=== PATIENT | female | born 1955 | race Caucasian/White ===

== ENCOUNTER → 2017-07-29 08:25 | Outpatient (CLI) | payer BC, SELFPAY ==
--- NOTE | 2017-07-29 08:27 | HPBI_ITS ---
MAMMOGRAPHY - BILATERAL SCREENING REASON FOR EXAM: Female, 61 years old. Routine annual screening examination. PERTINENT HISTORY: Aunt with breast cancer. TECHNIQUE: Digital bilateral breast jovan (3D mammographic acquisition) in the CC and MLO projections. 2-D mediolateral oblique (MLO) and craniocaudad (CC) views of both breasts were obtained. CAD: Full Field Digital Mammography with Computer Added Detection was performed. COMPARISON: Comparison is made with prior study dated May 27, 2016. FINDINGS: Breast Composition: There are scattered areas of fibroglandular density. There are no dominant masses or suspicious calcifications. No other significant abnormalities are identified. There has been no significant change since the prior study. HPBI/SCREENING MAMM (CAD), BILAT IMPRESSION: Stable bilateral screening mammogram. Yearly follow-up mammogram recommended. (A) ASSESSMENT CATEGORY: BIRADS Category 1: Negative. A letter regarding these results will be sent to the patient by the facility within 30 days. Approximately 10% of breast cancers are not detected by mammography. A normal mammogram should not delay biopsy of a clinically suspicious abnormality. [id number] Electronically Signed: Yunior Pacheco MD at 10:03 EST Tel [phone], Service support ,
== END ==
PROVIDERS: Family Provider Family Medicine; PCP Family Medicine; Visit Provider Family Medicine
DX: Z12.31 Encounter for screening mammogram for malignant neoplasm of breast (principal)
CPT/HCPCS: 77063; 77067

== ENCOUNTER → 2018-07-10 11:01 | Outpatient (CLI) | payer BC, SELFPAY ==
[2018-07-10 12:24] LABS: Anion Gap 9 (5-15); BUN 13 mg/dL (7-18); BUN/Creat Ratio 23.1 RATIO (10-20); Calcium,Total 8.8 mg/dL (8.5-10.1); Chloride 104 mmol/L (98-107); Cholesterol 234 mg/dL (200); Creatinine, Serum 0.56 mg/dL (0.55-1.02); EST Glomerular Filtration Rate 116 mL/min (>60); Est Glom Filt Rate - Afr Amer 140 mL/min (>60); Glucose 87 mg/dL (74-106); High Density Lipoprotein 81 mg/dL; Potassium 3.9 mmol/L (3.5-5.1); Sodium Level 140 mmol/L (136-145); Triglycerides 58 mg/dL; Very Low Density Lipoprotein 12 mg/dL (5-40)
[2018-07-11 15:26] LABS: Hep B Surface Antibodies Reactive (.); Hep C Antibodies <0.1 s/co ratio (0.0-0.9)
[2018-07-11 15:30] LABS: Hepatitis A IgM Antibody Positive (Negative)
[2018-07-13 11:26] LABS: Vitamin D 1,25-Dihydroxy 56.4 pg/mL (19.9-79.3)
== END ==
PROVIDERS: Family Provider Family Medicine; PCP Family Medicine; Visit Provider Family Medicine
DX: Z00.00 Encounter for general adult medical examination without abnormal findings (principal); E55.9 Vitamin D deficiency, unspecified; R53.83 Other fatigue; Z23 Encounter for immunization
CPT/HCPCS: 36415; 80048; 80061; 82652; 86706; 86709; 86803

== ENCOUNTER → 2018-07-20 12:12 | Outpatient (CLI) | payer BC, SELFPAY ==
--- NOTE | 2018-07-20 12:19 | BI_ITS ---
MAMMOGRAPHY - BILATERAL SCREENING REASON FOR EXAM: Female, 62 years old. Routine annual screening examination. PERTINENT HISTORY: Aunt with breast cancer. TECHNIQUE: Digital bilateral breast jovan (3D mammographic acquisition) in the CC and MLO projections. 2-D mediolateral oblique (MLO) and craniocaudad (CC) views of both breasts were obtained. CAD: Full Field Digital Mammography with Computer Added Detection was performed. COMPARISON: Comparison is made with prior study dated July 29, 2017 and May 27, 2016. FINDINGS: Breast Composition: There are scattered areas of fibroglandular density. There are no dominant masses or suspicious calcifications. No other significant abnormalities are identified. There has been no significant change since the prior study. BI/SCREENING MAMM (CAD), BILAT IMPRESSION: Stable bilateral screening mammogram. Yearly follow-up mammogram recommended. (A) ASSESSMENT CATEGORY: BIRADS Category 1: Negative. A letter regarding these results will be sent to the patient by the facility within 30 days. Approximately 10% of breast cancers are not detected by mammography. A normal mammogram should not delay biopsy of a clinically suspicious abnormality. [id number] Electronically Signed: Yunior Pacheco MD at 14:04 EST , Service support ,
--- NOTE | 2018-07-20 12:21 | BD_ITS ---
STUDY: DUAL ENERGY X-RAY ABSORPTIOMETRY / DXA REASON FOR EXAM: Female, 62 years old. The patient is postmenopausal. No loss of height. TECHNIQUE: Bone Mineral Density (BMD) measurements of lumbar spine and bilateral hips were obtained. COMPARISON: Comparison is made with prior study dated May 27, 2016. FINDINGS: Lumbar Spine (L1-L4): g/cm2 (0.823) / T-score (-3.1) / Z-score (-1.7) Findings are suggestive of osteoporosis with a high fracture risk. Left Femur Total: g/cm2 (0.808) / T-score (-1.6) / Z-score (-0.5) Left Femoral Neck: g/cm2 (0.782) / T-score (-1.8) / Z-score (-0.5) Right Femur Total: g/cm2 (0.852) / T-score (-1.2) / Z-score (-0.2) Right Femoral Neck: g/cm2 (0.782) / T-score (-1.8) / Z-score (-0.5) The T-Scores on the most recent prior examination were: Lumbar Spine (L1-L4): There has been worsening of bone density since the previous examination. Left Femur Total: which represents a worsening of 0.2%. Right Femur Total: which represents an improvement of 3.0%. BD/Dexa Bone Density Study IMPRESSION: The patient is considered osteoporotic as outlined below according to World Gerald Organization (WHO) criteria with a high fracture risk. There has been worsening of bone density since the previous examination. Reference Information: The T-score is the number of standard deviations above or below the standard which is normal for young adults at their peak bone mineral density. The World Health Organization (WHO) interprets the T-scores as follows: Above -1 Normal bone density Between -1 and -2.5 Osteopenia Equal to / or below -2.5 Osteoporosis As a practical clinical guideline, osteopenia may be graded as follows: Mild -1 through -1.5 Moderate -1.6 through -2.0 Severe -2.1 through -2.4 The Z-score is the number of standard deviations above or below age-matched controls. A Z-score of less than -1.5 would be considered abnormal. References: 1. NIH Osteoporosis and Related Bone Diseases http://www.osteo.org 2. International Society for Clinical Densitometry http://www.iscd.org 3. National Osteoporosis Foundation http://www.nof.org Electronically Signed: Yunior Pacheco MD at 11:09 EST , Service support ,
== END ==
PROVIDERS: Family Provider Family Medicine; PCP Family Medicine; Visit Provider Family Medicine
DX: Z12.31 Encounter for screening mammogram for malignant neoplasm of breast (principal); Z78.0 Asymptomatic menopausal state; M81.0 Age-related osteoporosis without current pathological fracture
CPT/HCPCS: 77063; 77067; 77080

== ENCOUNTER → 2019-07-18 08:40 | Outpatient (CLI) | payer BC, SELFPAY ==
[2019-07-18 10:29] LABS: Anion Gap 3 (5-15); BUN 12 mg/dL (7-18); BUN/Creat Ratio 21.1 RATIO (10-20); Calcium,Total 9.2 mg/dL (8.5-10.1); Chloride 106 mmol/L (98-107); Cholesterol 220 mg/dL (200); Creatinine, Serum 0.57 mg/dL (0.55-1.02); EST Glomerular Filtration Rate 114 mL/min (>60); Est Glom Filt Rate - Afr Amer 138 mL/min (>60); Glucose 80 mg/dL (74-106); High Density Lipoprotein 86 mg/dL; Potassium 3.8 mmol/L (3.5-5.1); Sodium Level 138 mmol/L (136-145); Thyroid Stim Hormone (TSH) 1.21 uIU/mL (0.358-3.74); Triglycerides 51 mg/dL; Very Low Density Lipoprotein 10 mg/dL (5-40)
== END ==
PROVIDERS: PCP Family Medicine; Referring Provider Family Medicine; Visit Provider Family Medicine
DX: M81.0 Age-related osteoporosis without current pathological fracture (principal); Z13.220 Encounter for screening for lipoid disorders
CPT/HCPCS: 36415; 80048; 80061; 82306; 84443

== ENCOUNTER → 2019-07-23 10:15 | Outpatient (CLI) | payer BC, SELFPAY ==
--- NOTE | 2019-07-23 10:17 | BI_ITS ---
MAMMOGRAPHY - BILATERAL SCREENING REASON FOR EXAM: Female, 63 years old. Routine annual screening examination. PERTINENT HISTORY: Aunt with breast cancer. TECHNIQUE: Digital bilateral breast analia (3D mammographic acquisition) in the CC and MLO projections. 2-D mediolateral oblique (MLO) and craniocaudad (CC) views of both breasts were obtained. CAD: Full Field Digital Mammography with Computer Added Detection was performed. COMPARISON: Comparison is made with prior examination dated July 20, 2018 and July 29, 2017. FINDINGS: Breast Composition: There are scattered areas of fibroglandular density. There are no dominant masses or suspicious calcifications. No other significant abnormalities are identified. There has been no significant change since the prior study. BI/SCREEN MAMM (CAD) W/ANALIA BILAT IMPRESSION: Stable bilateral screening mammogram. Yearly follow-up mammogram recommended. (A) ASSESSMENT CATEGORY: BIRADS Category 1: Negative. A letter regarding these results will be sent to the patient by the facility within 30 days. Approximately 10% of breast cancers are not detected by mammography. A normal mammogram should not delay biopsy of a clinically suspicious abnormality. [id number] Electronically Signed: Yunior Pacheco, at 11:16 EST , Service support ,
== END ==
PROVIDERS: PCP Family Medicine; Referring Provider Family Medicine; Visit Provider Family Medicine
DX: Z12.31 Encounter for screening mammogram for malignant neoplasm of breast (principal); Z80.3 Family history of malignant neoplasm of breast
CPT/HCPCS: 77063; 77067

== ENCOUNTER → 2020-06-30 10:21 | Outpatient (CLI) | payer BC, SELFPAY | PROVIDERS: PCP Family Medicine; Visit Provider Family Medicine | DX: Z20.822 Contact with and (suspected) exposure to COVID-19 (principal) | CPT/HCPCS: 87635; U0005; U0003 ==

== ENCOUNTER 2020-08-19 08:00 | Outpatient (RCR) | payer BC, SELFPAY ==
[2020-08-19] MEDS: COVID-19 VACC, MRNA(PFIZER)/PF 30 MCG/0.3 ML SYRINGE IM (18:52)
[2020-09-09] MEDS: COVID-19 VACC, MRNA(PFIZER)/PF 30 MCG/0.3 ML SYRINGE IM (18:35)
== END 2020-11-18 23:59 ==
LOC: IMMUN 08:00
PROVIDERS: PCP Family Medicine; Visit Provider Family Medicine
DX: Z23 Encounter for immunization (principal)
CPT/HCPCS: 0001A; 0002A; 91300

== ENCOUNTER → 2020-09-02 10:33 | Outpatient (CLI) | payer BC, SELFPAY ==
[2020-09-02 12:34] LABS: PTHIN 47.1 pg/mL (18.4-80.1)
[2020-09-02 12:40] LABS: Anion Gap 5 (5-15); BUN 11 mg/dL (7-18); Calcium,Total 9.4 mg/dL (8.5-10.1); Chloride 103 mmol/L (98-107); Cholesterol 239 mg/dL (200); Creatinine, Serum 0.65 mg/dL (0.55-1.02); EST Glomerular Filtration Rate 98 mL/min (>60); Est Glom Filt Rate - Afr Amer 118 mL/min (>60); Glucose 90 mg/dL (74-106); High Density Lipoprotein 97 mg/dL; Potassium 3.8 mmol/L (3.5-5.1); Sodium Level 137 mmol/L (136-145); Thyroid Stim Hormone (TSH) 1.13 uIU/mL (0.358-3.74); Triglycerides 44 mg/dL; Very Low Density Lipoprotein 9 mg/dL (5-40)
[2020-09-02 13:08] LABS: Hepatitis C Antibody Non-Reactive (Nonreactive); Vitamin D,25 Hydroxy 32.8 ng/mL
== END ==
PROVIDERS: PCP Family Medicine; Visit Provider Family Medicine
DX: M81.0 Age-related osteoporosis without current pathological fracture (principal); Z11.59 Encounter for screening for other viral diseases; Z13.220 Encounter for screening for lipoid disorders
CPT/HCPCS: 36415; 80048; 80061; 82306; 83970; 84443; 86803

== ENCOUNTER → 2020-09-03 | Outpatient (CLI) | payer BC, SELFPAY ==
[2020-09-08 12:50] LABS: HPV Reflexed? NOT INDICATED
== END | disposition home or self-care (01) ==
LOC: LABSPEC 15:08
PROVIDERS: PCP Family Medicine; Referring Provider Family Medicine; Visit Provider Registered Nurse
DX: Z01.419 Encounter for gynecological examination (general) (routine) without abnormal findings (principal)
CPT/HCPCS: 88175; G0145

== ENCOUNTER → 2020-10-07 13:29 | Outpatient (CLI) | payer BC, SELFPAY ==
--- NOTE | 2020-10-07 13:33 | BI_ITS ---
MAMMOGRAPHY - BILATERAL SCREENING REASON FOR EXAM: Female, 65 years old. Routine annual screening examination. PERTINENT HISTORY: Aunt with breast cancer. TECHNIQUE: Digital bilateral breast analia (3D mammographic acquisition) in the CC and MLO projections. 2-D mediolateral oblique (MLO) and craniocaudad (CC) views of both breasts were obtained. CAD: Full Field Digital Mammography with Computer Added Detection was performed. COMPARISON: Comparison is made with prior study dated 07/23/2019 and 07/20/2018. FINDINGS: Breast Composition: There are scattered areas of fibroglandular density. There are no dominant masses or suspicious calcifications. There is a 2.5 mm x 2.5 mm well-defined nodule in the upper lateral aspect of the right breast. Correlation with ultrasound is recommended. No other significant abnormalities are identified. BI/SCRN MAMM (CAD)W/ANALIA BILAT IMPRESSION: 2.5 mm x 2.5 mm well-defined nodule in the upper lateral aspect of the right breast. Correlation with ultrasound is recommended. ASSESSMENT CATEGORY: BIRADS Category 0: Incomplete. Need additional imaging evaluation. A letter regarding these results will be sent to the patient by the facility within 30 days. Approximately 10% of breast cancers are not detected by mammography. A normal mammogram should not delay biopsy of a clinically suspicious abnormality. [id number] Electronically Signed: Yunior Pacheco MD at 14:43 EDT , Service support ,
--- NOTE | 2020-10-07 13:35 | BD_ITS ---
STUDY: DUAL ENERGY X-RAY ABSORPTIOMETRY / DXA REASON FOR EXAM: Female, 65 years old. 733.00OsteoporosisBONE DENSITY REASON FOR EXAM TECHNIQUE: Bone Mineral Density (BMD) measurements of lumbar spine and bilateral hips were obtained. COMPARISON: Comparison is made with prior study dated 05/27/2016. FINDINGS: Lumbar Spine (L1-L4): g/cm2 (0.805) / T-score (-3.1) / Z-score (-1.5) Findings are suggestive of osteoporosis with a high fracture risk. Increased thoracic kyphosis. Left Femur Total: g/cm2 (0.725) / T-score (-2.2) / Z-score (-1.0) Left Femoral Neck: g/cm2 (0.697) / T-score (-2.5) / Z-score (-1.0) Right Femur Total: g/cm2 (0.746) / T-score (-2.1) / Z-score (-0.9) Right Femoral Neck: g/cm2 (0.733) / T-score (-2.2) / Z-score (-0.7) The T-Scores on the most recent prior examination were: Lumbar Spine (L1-L4): There has been worsening of bone density since the previous examination. Left Femur Total: which represents a worsening of 10.3%. Right Femur Total: which represents a worsening of 12.4%. BD/Dexa Bone Density Study IMPRESSION: The patient is considered osteoporotic as outlined below according to World Gerald Organization (WHO) criteria with a high fracture risk. There has been worsening of bone density since the previous examination. Reference Information: The T-score is the number of standard deviations above or below the standard which is normal for young adults at their peak bone mineral density. The World Health Organization (WHO) interprets the T-scores as follows: Above -1 Normal bone density Between -1 and -2.5 Osteopenia Equal to / or below -2.5 Osteoporosis As a practical clinical guideline, osteopenia may be graded as follows: Mild -1 through -1.5 Moderate -1.6 through -2.0 Severe -2.1 through -2.4 The Z-score is the number of standard deviations above or below age-matched controls. A Z-score of less than -1.5 would be considered abnormal. References: 1. NIH Osteoporosis and Related Bone Diseases www osteo.org 2. International Society for Clinical Densitometry www iscd.org 3. National Osteoporosis Foundation www nof.org Electronically Signed: Yunior Pacheco MD at 15:12 EDT , Service support ,
== END ==
PROVIDERS: PCP Family Medicine; Referring Provider Family Medicine; Visit Provider Family Medicine
DX: Z12.31 Encounter for screening mammogram for malignant neoplasm of breast (principal); M81.0 Age-related osteoporosis without current pathological fracture
CPT/HCPCS: 77063; 77067; 77080

== ENCOUNTER → 2020-10-10 10:55 | Outpatient (CLI) | payer BC, SELFPAY ==
--- NOTE | 2020-10-10 10:58 | US_ITS ---
STUDY: ULTRASOUND BREAST - RIGHT REASON FOR EXAM: Female, 65 years old. Abnormal screening mammogram. TECHNIQUE: Axial and longitudinal images of the RIGHT breast were performed with a high resolution ultrasound transducer. # OF IMAGES: 19 COMPARISON: Comparison is made with prior mammogram dated 10/07/2020. FINDINGS: RIGHT Breast: The mammographic abnormality corresponds to an 8 mm x 3 mm x 2 mm well-defined hypoechoic linear density at the 11 o''clock position breast 1 cm from nipple. This most likely represents a focally dilated duct. A 4 month follow-up examination is recommended. US/Breast Limited Unilateral IMPRESSION: The mammographic abnormality corresponds to an 8 mm x 3 mm x 2 mm well-defined hypoechoic linear density at the 11 o''clock position of the breast at 1 cm from nipple. This has the appearance of a focally dilated duct with low level echoes within it. A four-month follow-up sonogram is recommended. ASSESSMENT CATEGORY: BIRADS Category 3: Probably Benign - Short-Interval Follow-up Suggested. A letter regarding these results will be sent to the patient by the facility within 30 days. Electronically Signed: Yunior Pacheco MD at 14:36 EDT , Service support ,
== END ==
PROVIDERS: PCP Family Medicine; Referring Provider Family Medicine; Visit Provider Family Medicine
DX: N63.11 Unspecified lump in the right breast, upper outer quadrant (principal); R92.8 Other abnormal and inconclusive findings on diagnostic imaging of breast
CPT/HCPCS: 76642

== ENCOUNTER → 2021-01-22 | Outpatient (CLI) | payer BC, SELFPAY ==
[2021-01-22 20:01] LABS: Probe Check PASS; Specimen Processing Control PASS
== END | disposition home or self-care (01) ==
PROVIDERS: PCP Family Medicine; Visit Provider Family Medicine
DX: Z20.822 Contact with and (suspected) exposure to COVID-19 (principal)
CPT/HCPCS: 87635; U0005; U0003

== ENCOUNTER → 2021-02-09 09:23 | Outpatient (CLI) | payer BC, SELFPAY ==
--- NOTE | 2021-02-09 09:30 | US_ITS ---
STUDY: ULTRASOUND BREAST - RIGHT REASON FOR EXAM: Female, 65 years old. Short interval follow-up TECHNIQUE: Axial and longitudinal images of the RIGHT breast were performed with a high resolution ultrasound transducer. # OF IMAGES: 12 COMPARISON: 10/10/2020 FINDINGS: RIGHT Breast: Heterogeneous background echotexture. At 11 o''clock, 1 cm from the nipple, ultrasound demonstrates no change in the 3 x 7 mm oval parallel microlobulated hypoechoic mass and ultrasound-guided vacuum-assisted core biopsy is recommended.: US/Breast Limited Unilateral IMPRESSION: No change in the 3 x 7 mm oval parallel microlobulated hypoechoic mass and ultrasound-guided vacuum-assisted core biopsy is recommended. ASSESSMENT CATEGORY: BIRADS Category 4: Suspicious - Biopsy Should Be Considered. A letter regarding these results will be sent to the patient by the facility within 30 days. Electronically Signed: Bry Crandall MD at 10:55 EDT Tel , Service support ,
== END ==
PROVIDERS: PCP Family Medicine; Referring Provider Family Medicine; Visit Provider Family Medicine
DX: R92.8 Other abnormal and inconclusive findings on diagnostic imaging of breast (principal)
CPT/HCPCS: 76642

== ENCOUNTER 2021-09-29 09:14 | Outpatient (CLI) | payer BC, SELFPAY ==
[2021-09-29 12:23] LABS: Vitamin D,25 Hydroxy 66.7 ng/mL
[2021-09-29 12:31] LABS: PTHIN 36.9 pg/mL (18.4-80.1)
[2021-09-29 12:51] LABS: Anion Gap 7 (5-15); BUN 10 mg/dL (7-18); BUN/Creat Ratio 16.3 RATIO (10-20); Calcium,Total 9.4 mg/dL (8.5-10.1); Chloride 104 mmol/L (98-107); Cholesterol 267 mg/dL (200); Creatinine, Serum 0.61 mg/dL (0.55-1.02); EST Glomerular Filtration Rate 104 mL/min (>60); Est Glom Filt Rate - Afr Amer 125 mL/min (>60); Glucose 95 mg/dL (74-106); High Density Lipoprotein 103 mg/dL; Potassium 3.7 mmol/L (3.5-5.1); Sodium Level 138 mmol/L (136-145); Triglycerides 47 mg/dL; Very Low Density Lipoprotein 9 mg/dL (5-40)
== END 2021-09-29 23:59 | disposition home or self-care (01) ==
LOC: OPBI 09:15
PROVIDERS: PCP Family Medicine; Visit Provider Family Medicine
DX: M81.0 Age-related osteoporosis without current pathological fracture (principal); Z13.220 Encounter for screening for lipoid disorders
CPT/HCPCS: 36415; 80048; 80061; 82306; 82330; 83970; 84443

== ENCOUNTER → 2022-12-29 | Outpatient (CLI) | payer BC, SELFPAY ==
[2022-12-29 10:47] LABS: PTHIN 64.5 pg/mL (18.4-80.1)
[2022-12-29 10:49] LABS: Vitamin D,25 Hydroxy 58.8 ng/mL
[2022-12-29 11:05] LABS: Anion Gap 6 (5-15); BUN 7 mg/dL (7-18); BUN/Creat Ratio 12.4 RATIO (10-20); Calcium,Total 9.2 mg/dL (8.5-10.1); Chloride 104 mmol/L (98-107); Cholesterol 226 mg/dL (200); Creatinine, Serum 0.56 mg/dL (0.55-1.02); EST Glomerular Filtration Rate 114 mL/min (>60); Est Glom Filt Rate - Afr Amer 138 mL/min (>60); Glucose 92 mg/dL (74-106); High Density Lipoprotein 84 mg/dL; Magnesium 2.3 mg/dL (1.6-2.6); Phosphorus 4.1 mg/dL (2.5-4.9); Potassium 4.2 mmol/L (3.5-5.1); Sodium Level 138 mmol/L (136-145); Thyroid Stim Hormone (TSH) 1.63 uIU/mL (0.358-3.74); Triglycerides 58 mg/dL; Very Low Density Lipoprotein 12 mg/dL (5-40)
[2022-12-29 13:53] LABS: Ionized Calcium Order 4.86
[2023-01-01 10:39] LABS: Ionized Calcium 4.86 mg/dL (4.36-5.20)
== END | disposition home or self-care (01) ==
PROVIDERS: PCP Family Medicine; Visit Provider Family Medicine
DX: M81.0 Age-related osteoporosis without current pathological fracture (principal); Z13.220 Encounter for screening for lipoid disorders
CPT/HCPCS: 36415; 80048; 80061; 82306; 82330; 83735; 83970; 84100; 84443

== ENCOUNTER 2023-01-11 14:29 | Observation (INO) | payer BC, SELFPAY ==
[2023-01-11] VITALS (8 sets, daily range): BP systolic 112–148; BP diastolic 70–88; PULSE 62–83; RESP 14–18; TEMP 36.1–36.8; O2SAT 95–100; BMI 23.2; BMI 22.8
--- NOTE | 2023-01-11 14:54 | EKG12_ITS ---
Test Reason : ABD PAIN Blood Pressure : / mmHG Vent. Rate : 065 BPM Atrial Rate : 065 BPM P-R Int : 134 ms QRS Dur : 092 ms QT Int : 418 ms P-R-T Axes : 032 060 027 degrees QTc Int : 434 ms Normal sinus rhythm Normal ECG Confirmed by ISABELA RAMIREZ, KANDICE ([id number]), online editor MIK BAUTISTA ([id number]) on 01/13/2023 8:53:56 AM Referred By: Confirmed By:ELIJAH MAR MD
--- NOTE | 2023-01-11 14:56 | EX.ED.DYSGE1 ---
HPI History of Present Illness Chief Complaint: Abd Pain Informant: patient Onset/Context/Timing Onset: Days (3 days) Context: Gradual Onset Current Severity: Mild Maximum Severity: Moderate Narrative Narrative: Patient presents secondary to appendicitis. She had an outpatient CT today that shows noncomplicated retrocecal appendicitis. Patient states she developed abdominal pain on Tuesday. It was a cramping sensation across her lower abdomen and several hours later moved into her right lower quadrant. She had chills and no appetite. She was seen by her PCP this morning who sent her in for a CT scan. Patient states she last ate at 8 AM this morning. Since then she is only had the p.o. contrast for her CT scan. [facility] Medical History (Updated 01/11/23 @ 15:[address] Jody Vallejo MD) Osteoporosis Allergy/AdvReac Type Severity Reaction Status Date / Time Penicillins Allergy Hives Verified 01/11/23 14:31 Surgical History (Updated 01/11/23 @ 14:[address] Jody Vallejo MD) Hx of cholecystectomy ROS ROS ED Constitutional Constitutional ED: Reports chills; Denies fever(s) Eyes Eyes: Denies change in vision ENT ENT ED: Denies rhinorrhea or sore throat Cardiovascular Cardiovascular: Denies chest pain or palpitations Respiratory/Chest Respiratory/Chest: Denies cough or dyspnea Gastrointestinal Gastrointestinal: Reports abdominal pain, diarrhea and other Details: Decreased appetite ; Denies nausea or vomiting Genitourinary Genitourinary ED: Denies difficulty urinating or dysuria Musculoskeletal Musculoskeletal: Denies back pain or extremity pain Integumentary Denies Abrasions or rash Neurologic Neurologic: Denies headache(s) or weakness Psychiatric Psychiatric: Denies anxiety or depression Allergic/Immunologic Allergic/Immunologic ED: Denies lip swelling or urticaria EXAM Physical Exam Const Vital Signs: 01/11/23 14:29 Temperature 97.9 F Temperature Source Temporal Pulse Rate 81 Respiratory Rate 18 Blood Pressure 127/80 H Blood Pressure Mean 95 Pulse Ox 100 Oxygen Delivery Method Room Air Positive well nourished and well developed General Appearance ED: well developed HEENT Reports normocephalic and head/scalp atraumatic Eyes PERRL and EOMs intact bilaterally Neck supple Chest Wall inspection of chest normal and palpation of chest normal Resp normal respiratory effort and clear to auscultation bilaterally Cardio regular rate and regular rhythm GI GI Narrative: Abdomen soft with minimal tenderness in the right lower quadrant. No guarding or rebound. Hypoactive but present bowel sounds are noted. Palpation: soft Extremity normal to inspection Neuro oriented x3 and no sensory deficits noted Sensorium / Orientation: alert Motor Exam: strength 5/5 throughout Psych mental status grossly normal Skin no rashes or lesions noted MDM MDM MDM Narrative Medical decision making narrative: Patient's CT scan was reviewed. Patient has uncomplicated appendicitis. Her last lab work was obtained on the . At this time repeat labs will be obtained along with coags. EKG will be obtained for preoperative clearance. Patient does have an allergy to penicillin and is given Cipro and Flagyl. Surgeon is contacted. Discharge Plan Triage Chief Complaint: Abd Pain ED Provider: Jody Vallejo Dx/Rx/DC Orders Clinical Impression: Acute appendicitis Primary Care Provider: Genaro Ramirez Referrals: Genaro Ramirez MD [Primary Care Provider] - Disposition Disposition: Acute Care Hospital [facility]
--- NOTE | 2023-01-11 14:58 | NURSING ---
NO OLD EKGS
[2023-01-11 15:19] LABS: Absolute Lymphocyte Count 1.83 X10^3/uL (0.83-4.51); Absolute Neutrophil Count 3.2 X10^3/uL (2.0-7.7); Basophil# 0.02 X10^3/uL; Basophil% 0.4 % (0-1); Eosinophil# 0.13 X10^3/uL; Eosinophils% 2.3 % (0-5); Hematocrit 39.8 % (37-47); Hemoglobin 13.5 g/dL (12.0-15.0); Lymphocyte # 1.83 X10^3/ul (0.83-4.51); Lymphocyte % 32.6 % (19-41); Mean Corp Hgb Conc 33.9 g/dL (32-36); Mean Corpuscular Hgb 32.2 pg (27.0-32.0); Mean Platelet Vol. 9.4 fl (6.2-12.0); Monocyte# 0.44 X10^3/uL; Monocyte% 7.8 % (0-10); NRBC Flagged by Analyzer 0 % (0-5); Neutrophil # 3.18 X10^3/uL (2.7-7.7); Neutrophil % 56.5 % (47-70); Platelet Count 258 K/mm3 (150-450); RBC Distribution Width CV 12.5 % (11.6-14.6); RBC Distribution Width SD 43.8 fl (35.1-43.9); Red Blood Count 4.19 M/mm3 (4.2-5.4); White Blood Count 5.6 K/mm3 (4.4-11.0)
[2023-01-11 15:26] LABS: Prothrombin Time (Protime)PT. 12.7 SECONDS (11.7-14.9)
[2023-01-11] MEDS: 0.9% Normal Saline 1,000 ML 150 ML IV (15:26)
[2023-01-11 15:27] LABS: Partial Thromboplast Time 29.2 Seconds (24.1-36.2)
[2023-01-11] MEDS: Ciprofloxacin 400 MG/200 ML BAG 200 MG IV (15:28)
--- NOTE | 2023-01-11 16:15 | NURSING ---
SURGERY THEN [address] [facility]
[2023-01-11 16:23] LABS: Anion Gap 3 (5-15); BUN 6 mg/dL (7-18); BUN/Creat Ratio 11.7 RATIO (10-20); Calcium,Total 8.9 mg/dL (8.5-10.1); Chloride 104 mmol/L (98-107); Creatinine, Serum 0.52 mg/dL (0.55-1.02); EST Glomerular Filtration Rate 126 mL/min (>60); Est Glom Filt Rate - Afr Amer 153 mL/min (>60); Estimated Creatinine Clearance 41.19 ml/min; Glucose 91 mg/dL (74-106); Sodium Level 136 mmol/L (136-145)
--- NOTE | 2023-01-11 16:46 | HP.PCM_ITS ---
HPI - General General Date of Admission: 01/11/23 Chief Complaint: Outpatient CT consistent with acute appendicitis HPI Narrative GELA RUSSO, is a 67 F who presents to [facility] on direction from her primary care provider after outpatient CT is read is consistent with acute appendicitis. This imaging was ordered after patient contacted her [facility] provider office on 01/10/2023 after particularly intense period of right lower quadrant abdominal discomfort that began in the preceding day. She notes that the pain began around her bellybutton and migrated to the right lower quadrant. That day it was associated with some nausea but no vomiting. She also notes the presence of chills but did not take her temperature. She reports that the following day, yesterday, she had some improvement of her symptoms but remained without an appetite. Today she was surprised at how her pain was significantly better and she was able to tolerate breakfast without any nausea. In fact she reports an appetite currently. Mrs. Russo denies any prior experience of this abdominal discomfort. She states the reason she sought further evaluation is because she was due to travel to [place] this weekend for her nephew's wedding and wanted to be sure this was more fully evaluated before she began those travels. Mrs. Russo has a history of cholecystectomy performed via laparoscopic approach in 2012 in [facility] where she lived at the time. She notes that this was an emergent procedure. She then moved to [place] where she had a colono scopy approximately [address] Sorto[address] She was given a 7-year follow-up rather than a 10-year follow-up on the account of some insignificant polyps. She otherwise denies any significant family history for GI diagnoses. [facility] Medical History (Updated 01/11/23 @ 15:[address] Jody Vallejo MD) Osteoporosis Home Medications Calcium 1,200 iu PO 1XD 01/11/23 [History Last Taken 01/10/23] cholecalciferol (vitamin D3) 125 mcg (5,000 unit) tablet (Vitamin D3) 5,000 unit PO DAILY 01/11/23 [History Last Taken Unknown] Allergy/AdvReac Type Severity Reaction Status Date / Time Penicillins Allergy Hives Verified 01/11/23 14:31 Surgical History (Updated 01/11/23 @ 14:[address] Jody Vallejo MD) Hx of cholecystectomy Social History Smoking Status: Never smoker Vital Signs Vital Signs Vital Signs: 01/11/23 14:29 Temperature 97.9 F Temperature Source Temporal Pulse Rate 81 Respiratory Rate 18 Blood Pressure 127/80 H Blood Pressure Mean 95 Pulse Ox 100 Oxygen Delivery Method Room Air Weight Weight: 123 lb Body Mass Index (BMI) 23.2 Physical Exam Const alert, oriented x3, no apparent distress and well nourished General Appearance: cooperative Resp normal respiratory effort GI GI Narrative: Soft, scars present from prior laparoscopy now well-healed, no evidence of herniation with inspection or palpation, nondistended, tenderness present over McBurney's point. Negative obturator and psoas signs. Results Lab / Micro Data 01/11/23 15:05 01/11/23 15:05 Labs: Laboratory Results - last 24 hr 01/11/23 15:05: WBC 5.6, RBC 4.19 L, Hgb 13.5, Hct 39.8, MCV 95.0, MCH 32.2 H, MCHC 33.9, RDW Std Deviation 43.8, RDW Coeff of [place] 12.5, Plt Count 258, MPV 9.4, Immature Gran % (Auto) 0.400, Neut % (Auto) 56.5, Lymph % (Auto) 32.6, [place] % (Auto) 7.8, Eos % (Auto) 2.3, Baso % (Auto) 0.4, Absolute Neuts (auto) 3.2, Absolute Lymphs (auto) 1.83, Nucleated RBC % 0, PT 12.7, INR 1.0, APTT 29.2, Sodium 136, Potassium 5.0, Chloride 104, Carbon Dioxide 29.0, Anion Gap 3 L, BUN 6 L, Creatinine 0.52 L, Estim Creat Clear Calc 41.19, Est GFR (MDRD) Af Amer 153, Est GFR (MDRD) Non-Af 126, BUN/Creatinine Ratio 11.7, Glucose 91, Calcium 8.9 Assessment & Plan Assessment/Plan (1) Acute appendicitis: PLAN: This is a 67-year-old female who presents with a bit of a atypical presentation for acute appendicitis given that the most significant portion of her presentation actually occurred over 48 hours ago with severe abdominal disco mfort and associated nausea/anorexia. Still, outpatient CT imaging is consistent with a retrocecal inflamed appendix as I have independently reviewed and patient has tenderness over McBurney's point. It is with these things in place that I have recommended proceeding for laparoscopic appendectomy this evening. I have discussed the recent results of the CODA trial and the use of antibiotics alone for appendicitis, but outlined that it remains a standard of care in this country to perform appendectomy. Mrs. Russo and her expressed understanding of this information and appreciation for the explanation. Mrs. Russo also confirms that she is ready to proceed with surgery. The procedure and its attendant risks were briefly discussed as well as the expected postoperative recovery. I initially tried to prepare her for possible outpatient discharge, however, and checking with the emergency schedule for the operating room it appears that this operation will be proceeding later so we will plan for an observational admission to try to enhance patient's comfort. Antibiotics have already been provided by emergency medicine and were sensitive to patient's allergy to penicillins. Charges/Coding Visit Charges Inpatient E&M: 79392 Init Hosp L2
[2023-01-11] MEDS: 0.9% Normal Saline 1,000 ML 125 ML IV ×2 (17:36→21:45)
[2023-01-11] MEDS: metroNIDAZOLE 500 MG/100 ML BAG 100 MG IV (18:20)
--- NOTE | 2023-01-11 18:20 | APP_PTH ---
PATIENT: GELA RUSSO LOC: MS3 U#:[id number] AGE/SX: 67/F [place] [facility] [place]: Dr. Antoni Munguia MD : 1955 BED: 1 DIS: 01/12/2023 SPEC #: [id number] RECD: 01/12/23 08:09 STATUS: MOOK SUNG #: [id number] SUSIE: 01/11/23 18:[address]: Antoni Munguia DEPT: SURGICAL PATHOLOGY RECD BY: Nadja Do ENTERED: 01/12/23 09:49 SP TYPE: APPENDIX OTHR DR: Dr. Crescencio Ramirez MD Tissues: Appendix, NOS Procedures: Surgery Specimen Level III HEADER OPERATION: Laparoscopic appendectomy PRE-OP DIAGNOSIS: Acute appendicitis TISSUE SUBMITTED: Appendix MICROSCOPIC DIAGNOSIS Appendix, appendectomy: Acute appendicitis and periappendicitis. ALMA:hannah 01/13/2023 MICROSCOPIC DESCRIPTION Slides are reviewed. GROSS DESCRIPTION Received in fixative is one container labeled with the patient's name and designated appendix. The specimen consists of an appendix measuring 4.3 cm in length and up to 0.8 cm in diameter. The attached periappendiceal adipose tissue measures up to 1.5 cm in width. The serosa is congested. No obvious perforation is identified. The mucosa is congested. No fecalith is identified. Physical Therapy Supervisor sections are submitted in two cassettes. The appendix is submitted in entirety. Cassette 1 contains the tip and proximal portion. / ALMA:hannah 01/12/2023 TC:2 CPT: 69498
[2023-01-11] MEDS: Bupivacaine Mpf 0.5% 30 ML VIAL (20:17)
--- NOTE | 2023-01-11 20:27 | OP.PCM_ITS ---
Report of Operation Date of Procedure: 01/11/23 Pre-Operative Diagnosis: Acute appendicitis Post-Operative Diagnosis: Acute, uncomplicated appendicitis Surgery/Procedure Performed:: Laparoscopic appendectomy Description of Surgical Findings:: ? Acutely inflamed appendix with injected serosa?no evidence of perforation Surgeon: Antoni Munguia software test analyst: None Type of Anesthesia: General/Supplemental Anesthesiologist: Miguelina Duncan Specimen's removed: Appendix Drains: None Estimated Blood Loss (mL): 5 Description of Procedure: After appropriate identification in the PACU holding area, the patient was brought to the operating room and placed supine on the operating room table. Antibiotics had been preoperatively administered by emergency medicine. Patient was then induced with general endotracheal anesthetic. The abdomen was prepped and draped in usual sterile fashion. Formal timeout was conducted to confirm both the patient and the procedure. A supraumbilical incision was made and carried down to the level of the fascia which was sharply opened. After opening the peritoneum in like fashion a finger sweep was made to confirm position, and a balloon trocar was placed and pneumoperitoneum was established to 15 mmHg. Patient was positioned in Trendelenburg with the left side down. Under laparoscopic visualization, 2 additional 5 mm trocars were placed in the left lower quadrant and suprapubic positions. The peritoneum was inspected and there were no signs of inadvertent injury from this [place] entry. The appendix was visualized with mild acute inflammation. Using blunt laparoscopic dissection, a window was made in the mesoappendix adjacent to the appendiceal base. Then the base of the appendix was sealed and amputated with the use of an Endo ELIJAH stapler. The mesoappendix was divided with application of a laparoscopic harmonic. The appendix was placed in an Endo Catch bag. The staple line was inspected for hemostasis. After hemostasis was confirmed, the appendix was removed from the umbilical port site. Pneumoperitoneum was then evacuated and the supraumbilical port site fascia was closed with #1 Vicryl in a hqaxmx-go-dhaij fashion. The port sites were infiltrated with 20 mL local anesthetic. The skin of each port site was closed with 4-0 Monocryl in a subcuticular fashion. Steri-Strips and OpSite dressings were applied. Patient tolerated procedure well without any apparent complications. They were awoken from general anesthetic without issue and transferred to post anesthesia care unit for ongoing recovery. Grafts/Implants Used: None Complications None Admit VTE Documentation VTE Mechan Device Prophylaxis: SCD's Procedures Digestive 40xxx-49xxx: 60279 Laparoscopy appendectomy
[2023-01-11] MEDS: Acetaminophen 500 MG Tablet PO (23:38)
[2023-01-12 01:26] VITALS: BP 108/65; PULSE 71; RESP 16; TEMP 36.7; O2SAT 97
[2023-01-12 05:26] VITALS: BP 105/64; PULSE 68; RESP 16; TEMP 36.6; O2SAT 96
--- NOTE | 2023-01-12 09:08 | PCM.PN.SRG ---
Subjective Subjective Patient evaluated resting comfortably in bed. She denies any nausea, vomiting, fever. She feels hungry. She notes very minimal amount of incisional pain. Objective Data Objective Data Vital Signs: Vital Signs Temp Pulse Resp BP Pulse Ox O2 Del Method 97.8 F 68 16 105/64 96 Room Air 01/12/23 05:26 01/12/23 05:26 01/12/23 05:26 01/12/23 05:26 01/12/23 05:26 01/12/23 05:26 Oxygen Delivery Method Room Air Weight: 120 lb 9.486 oz Body Mass Index (BMI) 22.8 Intake & Output: Intake and Output for Last 24 Hours 01/10/23 01/11/23 01/12/23 23:59 23:59 23:59 Intake Total 716.67 / 716.67 2400 / 2400 Output Total 1700 / 1700 Balance 716.67 / 716.67 700 / 700 Lab / Micro Data 01/11/23 15:05 01/11/23 15:05 Labs: Laboratory Results - last 24 hr 01/11/23 15:05: WBC 5.6, RBC 4.19 L, Hgb 13.5, Hct 39.8, MCV 95.0, MCH 32.2 H, MCHC 33.9, RDW Std Deviation 43.8, RDW Coeff of Sharona 12.5, Plt Count 258, MPV 9.4, Immature Gran % (Auto) 0.400, Neut % (Auto) 56.5, Lymph % (Auto) 32.6, [place] % (Auto) 7.8, Eos % (Auto) 2.3, Baso % (Auto) 0.4, Absolute Neuts (auto) 3.2, Absolute Lymphs (auto) 1.83, Nucleated RBC % 0, PT 12.7, INR 1.0, APTT 29.2, Sodium 136, Potassium 5.0, Chloride 104, Carbon Dioxide 29.0, Anion Gap 3 L, BUN 6 L, Creatinine 0.52 L, Estim Creat Clear Calc 41.19, Est GFR (MDRD) Af Amer 153, Est GFR (MDRD) Non-Af 126, BUN/Creatinine Ratio 11.7, Glucose 91, Calcium 8.9 Physical Exam Const alert, oriented x3 and no apparent distress GI normal to inspection, nondistended, normoactive bowel sounds GI Narrative: Abdomen- soft, nontender. Incisions c/d/i. No erythema or infection noted Assessment & Plan Assessment/Plan (1) Acute appendicitis: QUALIFIERS: Acute appendicitis type: with localized peritonitis Appendicitis gangrene presence: without gangrene Appendicitis perforation presence: without perforation Appendicitis abscess presence: without abscess Qualified Code(s): K35.30 - Acute appendicitis with localized peritonitis, without perforation or gangrene PLAN: Patient is recovering and progressing well Increase diet to regular Ready for discharge Charges/Coding Visit Charges Inpatient E&M: 79233 Init Hosp L1 (Post-op; no charge)
--- NOTE | 2023-01-12 09:19 | DCINST_ITS ---
Discharge Instructions Diet Discharge Diet: Light diet - advance as tolerated Activity Discharge Activity: May Not Drive (3-5 days or while taking narcotic pain medication) and May Shower (today) Lifting Restrictions: 15 pounds for 2 weeks Dressing / Incision Call your doctor if your incision/area has: Continuous Slow Oozing, Sudden Increased Bleeding, Increased Pain/ Swelling, Increased Redness, Foul Smelling Discharge and Swelling at the incision site Call your doctor if you observe: Fever of 101 or Higher Suture Line Care: Avoid Pulling/Pushing and Avoid Pinching/Bending Remove Dressing in: 1 day Cleanse incision/area with: Soap & Water Follow Up Care Please Follow Up With: Antoni Munguia MD When: Please contact our office to follow-up in 10 days at [phone] Test Results: Test results from this visit will be discussed in further detail at your follow- up appointment, if applicable. Discharge Plan Admission Admit Date/Time: 01/11/23 16:55 Primary Reason for Your Visit: Acute appendicitis Attending Provider: Antoni Munguia Primary Care Provider: Genaro Ramirez Instructions Additional Instructions / Restrictions: Recommend alternating Tylenol and ibuprofen as needed for pain. For example: Tylenol at 0800, Ibuprofen at 1200, Tylenol at 1500 (3pm), Ibuprofen at 1800 (6pm), etc. You also have a narcotic prescription at your preferred pharmacy if needed May shower starting today Remove op-site tomorrow No lifting greater than 15 pounds for 3 weeks Discharge Orders/Prescriptions Prescriptions: New oxycodone 5 mg Tablet 5 mg PO Q6H PRN PRN (Reason: Pain Score 6-10) 2 Days Qty: 6 0RF Continued Calcium 1,200 iu PO 1XD cholecalciferol (vitamin D3) [Vitamin D3] 125 mcg (5,000 unit) tablet 5,000 unit PO DAILY Referrals / Follow Up: Genaro Ramirez MD [Primary Care Provider] - Antoni Munguia MD [Med Staff - Active Staff] - (Please contact our office to schedule a follow-up appointment for 10 days) Disposition Disposition (needs filled in before D/C Order can be placed): Home, Self Care
--- NOTE | 2023-01-12 11:27 | PHA.DC.MC.R ---
Pharmacy [facility] Service has performed discharge medication reconciliation and counseling for this patient. 1. OXYCODONE 5MG PO Q6H PRN SEVERE PAIN The patient's discharge medication list was reviewed for discrepancies and discrepancies were resolved. The patient was counseled on the following discharge medications and changes in medications for homegoing were reviewed. The Reason for Use, instructions for use, and potential side effects were reviewed for all new medications. The patient's questions regarding all of their medications were answered. The patient was able to verbally demonstrate an understanding of their discharge medications. Patient counseled by pharmacy retail support specialistIris. Medications at Discharge Home Medications Calcium 1,200 iu PO 1XD 01/11/23 cholecalciferol (vitamin D3) 125 mcg (5,000 unit) tablet (Vitamin D3) 5,000 unit PO DAILY 01/11/23 oxycodone 5 mg tablet 5 mg PO Q6H PRN PRN Pain Score 6-10 2 days #6 tabs 01/12/23
== END 2023-01-12 11:20 | disposition home or self-care (01) ==
LOC: ED 15:08 → MS3 16:16
PROVIDERS: Admitting Provider Surgery; Emergency Provider Emergency Medicine; PCP Family Medicine; Visit Provider Surgery
PROC: 0DTJ4ZZ Resection of Appendix, Percutaneous Endoscopic Approach (ICD-10-PCS; CPT 44970; principal; 2023-01-11 18:00)
DX: K35.30 Acute appendicitis with localized peritonitis, without perforation or gangrene (principal)
CPT/HCPCS: 44970; 00840; 80048; 85025; 85610; 85730; 88304; 93005; 96361; 96365; 96366; 99221; 99282; J7030; G0378; J0744; J2405

== ENCOUNTER → 2023-01-11 | Outpatient (CLI) | payer BC, SELFPAY ==
--- NOTE | 2023-01-11 10:37 | CT_ITS ---
STUDY: CT ABDOMEN AND PELVIS WITH CONTRAST REASON FOR EXAM: Female, 67 years old. RLQ pain x 2 days, nausea, prior cholecystectomy. RADIATION DOSAGE (If Supplied By Facility): CTDIvol = ( 16.31 ) mGy, DLP = ( 434.35 ) mGycm TECHNIQUE: Transaxial images were obtained from the dome of the diaphragm to the symphysis pubis with oral contrast. Oral and IV Gastrografin and 100mL Isovue-300 was administered. Sagittal and coronal images were reconstructed. Individualized dose optimization techniques were used for this CT. COMPARISON: None. FINDINGS: The visualized lung bases are unremarkable. The visualized portions of the heart are within normal limits. There is a 8mm cyst in the inferior medial aspect of the right lobe of the liver. There are surgical clips in the gallbladder fossa consistent with a prior cholecystectomy. Normal spleen. Normal pancreas. Normal bilateral adrenal glands. Normal right kidney. Normal left kidney. Normal visualized stomach. Normal small intestine. Moderate amount of fecal material is seen in the colon. There is a tubular, thick-walled appendix (>7mm), consistent with acute appendicitis. This is retrocecal in location. Normal abdominal aorta. Normal inferior vena cava. Normal retroperitoneum. Normal urinary bladder. Calcified fibroid uterus. Normal abdominal wall. Loss of height of the superior endplate of the L5 vertebrae. CT/Abdomen/Pelvis WITH Contrast IMPRESSION: Acute noncomplicated retrocecal appendicitis. Electronically Signed: Yunior Pacheco MD at 13:56 EDT ,
== END | disposition home or self-care (01) ==
LOC: CT 10:32
PROVIDERS: PCP Family Medicine; Referring Provider Family Medicine; Visit Provider Family Medicine
DX: R10.31 Right lower quadrant pain (principal)
CPT/HCPCS: 74177; Q9967; A4216

== ENCOUNTER → 2023-03-03 | Outpatient (CLI) | payer BC, SELFPAY ==
--- NOTE | 2023-03-03 13:16 | BI_ITS ---
MAMMOGRAPHY - BILATERAL SCREENING REASON FOR EXAM: Female, 67 years old. Routine annual screening examination. PERTINENT HISTORY: Non-contributory. TECHNIQUE: Digital bilateral breast analia (3D mammographic acquisition) in the CC and MLO projections. 2-D mediolateral oblique (MLO) and craniocaudad (CC) views of both breasts were obtained. CAD: Full Field Digital Mammography with Computer Added Detection was performed. COMPARISON: Comparison is made with prior outside examination of February 26, 2022 and October 07, 2020. FINDINGS: Breast Composition: There are scattered areas of fibroglandular density. There are no dominant masses or suspicious calcifications. No other significant abnormalities are identified. There has been no significant change since the prior study. BI/SCRN MAMM (CAD)W/ANALIA BILAT IMPRESSION: Stable bilateral screening mammogram. Yearly follow-up mammogram recommended. (A) ASSESSMENT CATEGORY: BIRADS Category 1: Negative. A letter regarding these results will be sent to the patient by the facility within 30 days. Approximately 10% of breast cancers are not detected by mammography. A normal mammogram should not delay biopsy of a clinically suspicious abnormality. [id number] Electronically Signed: Yunior Pacheco MD at 14:46 EDT ,
--- NOTE | 2023-03-03 13:22 | BD_ITS ---
STUDY: DUAL ENERGY X-RAY ABSORPTIOMETRY / DXA REASON FOR EXAM: Female, 67 years old. [id number] TECHNIQUE: Bone Mineral Density (BMD) measurements of lumbar spine and bilateral hips were obtained. COMPARISON: Comparison is made with prior study dated October 07, 2020. FINDINGS: Lumbar Spine (L1-L4): g/cm2 (0.648) / T-score (-4.1) / Z-score (-2.1) Findings are suggestive of osteoporosis with a high fracture risk. Left Femur Total: g/cm2 (0.688) / T-score (-2.1) / Z-score (-0.7) Left Femoral Neck: g/cm2 (0.580) / T-score (-2.4) / Z-score (-0.8) Right Femur Total: g/cm2 (0.721) / T-score (-1.8) / Z-score (-0.4) Right Femoral Neck: g/cm2 (0.652) / T-score (-1.8) / Z-score (-0.1) The T-Scores on the most recent prior examination were: Lumbar Spine (L1-L4): There has been worsening of bone density since the previous examination. Left Femur Total: which represents an improvement of 3.1%. Right Femur Total: which represents an improvement of 4.8%. BD/Dexa Bone Density Study IMPRESSION: The patient is considered osteoporotic as outlined below according to World Gerald Organization (WHO) criteria with a high fracture risk. There has been improvement of bone density since the previous examination. Reference Information: The T-score is the number of standard deviations above or below the standard which is normal for young adults at their peak bone mineral density. The World Health Organization (WHO) interprets the T-scores as follows: Above -1 Normal bone density Between -1 and -2.5 Osteopenia Equal to / or below -2.5 Osteoporosis As a practical clinical guideline, osteopenia may be graded as follows: Mild -1 through -1.5 Moderate -1.6 through -2.0 Severe -2.1 through -2.4 The Z-score is the number of standard deviations above or below age-matched controls. A Z-score of less than -1.5 would be considered abnormal. References: 1. NIH Osteoporosis and Related Bone Diseases www osteo.org 2. International Society for Clinical Densitometry www iscd.org 3. National Osteoporosis Foundation www nof.org Electronically Signed: Yunior Pacheco MD at 14:44 EDT ,
== END | disposition home or self-care (01) ==
PROVIDERS: PCP Family Medicine; Referring Provider Family Medicine; Visit Provider Family Medicine
DX: Z12.31 Encounter for screening mammogram for malignant neoplasm of breast (principal); M81.0 Age-related osteoporosis without current pathological fracture
CPT/HCPCS: 77063; 77067; 77080

== ENCOUNTER → 2024-02-27 | Outpatient (CLI) | payer BC, SELFPAY ==
[2024-02-27 10:54] LABS: Ionized Calcium Order ORDER TUBE
[2024-02-27 13:03] LABS: PTHIN 68.9 pg/mL (18.4-80.1)
[2024-02-27 13:04] LABS: Vitamin D,25 Hydroxy 54.1 ng/mL
[2024-02-27 13:49] LABS: AST(SGOT) 12 U/L (15-37); Alanine Aminotransfer ALT/SGPT 17 U/L (13-56); Albumin, Serum 3.8 g/dL (3.2-5.0); Alkaline Phosphatase 59 U/L (45-117); Anion Gap 8 (5-15); BUN 9 mg/dL (7-18); BUN/Creat Ratio 16.9 RATIO (10-20); Bilirubin, Direct 0.16 mg/dL (0.00-0.30); Calcium,Total 9.1 mg/dL (8.5-10.1); Chloride 102 mmol/L (98-107); Cholesterol 251 mg/dL (200); Creatinine, Serum 0.53 mg/dL (0.55-1.02); EST Glomerular Filtration Rate 121 mL/min (>60); Est Glom Filt Rate - Afr Amer 146 mL/min (>60); Globulin 3.5 g/dL (2.2-4.2); Glucose 101 mg/dL (74-106); High Density Lipoprotein 89 mg/dL; Magnesium 2.2 mg/dL (1.6-2.6); Potassium 3.9 mmol/L (3.5-5.1); Protein, Total 7.3 g/dL (6.4-8.2); Sodium Level 135 mmol/L (136-145); Triglycerides 62 mg/dL; Very Low Density Lipoprotein 12 mg/dL (5-40)
== END | disposition home or self-care (01) ==
LOC: MFPLAB 09:53
PROVIDERS: PCP Family Medicine; Visit Provider Family Medicine
DX: Z13.220 Encounter for screening for lipoid disorders (principal); M81.0 Age-related osteoporosis without current pathological fracture; E55.9 Vitamin D deficiency, unspecified; B35.1 Tinea unguium
CPT/HCPCS: 36415; 80048; 80061; 80076; 82306; 82330; 83735; 83970; 84443

== ENCOUNTER → 2024-03-19 | Outpatient (CLI) | payer BC, SELFPAY ==
--- NOTE | 2024-03-19 10:32 | BI_ITS ---
MAMMOGRAPHY - BILATERAL SCREENING REASON FOR EXAM: Female, 68 years old. Routine annual screening examination. PERTINENT HISTORY: Aunt with breast cancer. TECHNIQUE: Digital bilateral breast analia (3D mammographic acquisition) in the CC and MLO projections. 2-D mediolateral oblique (MLO) and craniocaudad (CC) views of both breasts were obtained. CAD: Full Field Digital Mammography with Computer Added Detection was performed. COMPARISON: Comparison is made with prior study dated March 03, 2023 and October 07, 2020. FINDINGS: Breast Composition: There are scattered areas of fibroglandular density. There are no dominant masses or suspicious calcifications. No other significant abnormalities are identified. There has been no significant change since the prior study. BI/SCRN MAMM (CAD)W/ANALIA BILAT IMPRESSION: Stable bilateral screening mammogram. Yearly follow-up mammogram recommended. (A) ASSESSMENT CATEGORY: BIRADS Category 1: Negative. A letter regarding these results will be sent to the patient by the facility within 30 days. Approximately 10% of breast cancers are not detected by mammography. A normal mammogram should not delay biopsy of a clinically suspicious abnormality. [id number] Electronically Signed: Yunior Pacheco MD at 11:07 EDT ,
== END | disposition home or self-care (01) ==
PROVIDERS: PCP Family Medicine; Referring Provider Family Medicine; Visit Provider Family Medicine
DX: Z12.31 Encounter for screening mammogram for malignant neoplasm of breast (principal)
CPT/HCPCS: 77063; 77067

== ENCOUNTER → 2025-02-25 | Outpatient (CLI) | payer BC, SELFPAY ==
[2025-02-25 11:03] LABS: Anion Gap 10 (5-15); BUN 8 mg/dL (4-19); BUN/Creat Ratio 14.9 RATIO (10-20); Calcium,Total 9.3 mg/dL (7.6-11.0); Carbon Dioxide 24.8 mmol/L (21.0-32.0); Chloride 106 mmol/L (98-108); Cholesterol 236 mg/dL (<=200); Glucose 105 mg/dL (70-99); Low Density Lipoprotein Calc. 140 mg/dL; Potassium 4.1 mmol/L (3.3-5.1); Triglycerides 55 mg/dL; Very Low Density Lipoprotein 11 mg/dL (5-40); Vitamin D,25 Hydroxy 54.1 ng/mL (30-100); cholesterol:hdl ratio screen 2.79
== END | disposition home or self-care (01) ==
LOC: MFPLAB 09:20
PROVIDERS: PCP Family Medicine; Visit Provider Family Medicine
DX: E78.5 Hyperlipidemia, unspecified (principal); M81.0 Age-related osteoporosis without current pathological fracture
CPT/HCPCS: 36415; 80048; 80061; 82306; 84443

== ENCOUNTER → 2025-04-04 | Outpatient (CLI) | payer BC, SELFPAY ==
--- NOTE | 2025-04-04 14:28 | BI_ITS ---
EXAM: SCRN MAMM (CAD)W/ANALIA BILAT DATE: 04/04/2025 CLINICAL HISTORY: F, Age 69 y/o , SCREENING TECHNIQUE: Procedure Code: BISMWCADBTOM Modality: MG Procedure: SCRN MAMM (CAD)W/ANALIA BILAT COMPARISON: Prior exam(s) were compared FINDINGS: TISSUE DENSITY: The breasts are heterogeneously dense, which may obscure small masses. Bilateral Breast Mammographic Findings: No suspicious masses, calcifications or other abnormalities are identified. BI/SCRN MAMM (CAD)W/ANALIA BILAT IMPRESSION: No mammographic evidence of malignancy in either breast. OVERALL FINAL ASSESSMENT BI-RADS 1: NEGATIVE. RECOMMENDATION: Routine annual follow-up in 1 Year Additional Recommendation none A letter with findings and recommendations will be mailed to the patient. Reading Location: [id number]
--- NOTE | 2025-04-04 14:28 | BD_ITS ---
PROCEDURE: DEXA BONE DENSITY STUDY 04/04/2025 REASON FOR EXAM: F, age 69 y/o . Postmenopausal. TECHNIQUE: Procedure Code: BDDBD Modality: DX Procedure: DEXA BONE DENSITY STUDY COMPARISON: October 07, 2020. FINDINGS: BMD and T-SCORES Lumbar spine: 0.676 g/cm2, T-score -3.4 Levels: L1 through L4 Change from prior: Loss of 3.5%. Left femoral neck: 0.566 g/cm2, T-score -2.5 Femoral neck comparison data not recommended for monitoring change. Left total hip: 0.68 no g/cm2, T-score -2.1 Change from prior: Improvement of 0.2%. Right femoral neck: 0.638 g/cm2, T-score -1.9 Femoral neck comparison data not recommended for monitoring change. Right total hip: 0.713 g/cm2, T-score -1.9 Change from prior: Loss of 1.1%. The World Health Organization has defined the following categories based on bone density: Normal bone density: T-score equal to or greater than -1.0 Osteopenia: T-score between -1.0 and -2.5 Osteoporosis: T-score equal to or less than -2.5 FRAX (or Comparable) Fracture Risk Assessment: 10 Year Probability of Fracture: Major Osteoporotic Fracture: 34% Hip Fracture: 10% (Note: FRAX is not to be reported in setting of normal range bone density, osteoporosis on DEXA, known history of osteoporosis, prior osteoporotic hip or vertebral fracture, or for any patient undergoing pharmacological treatment for bone loss.) The National Osteoporosis Foundation (NOF) recommends pharmacological treatment for patients with a FRAX 10-year risk of 3% or higher for a hip fracture, or 20% or higher for a major osteoporotic fracture, to prevent osteoporosis and reduce fracture risk. The patient does meet the pharmacological treatment recommendations for prevention of osteoporosis. BD/Dexa Bone Density Study IMPRESSION: OSTEOPOROSIS. Recommend follow-up as clinically warranted. Reading Location: [place] [id number]
--- NOTE | 2025-04-04 14:28 | BI_ITS ---
EXAM: SCRN MAMM (CAD)W/NAALIA BILAT DATE: 04/04/2025 CLINICAL HISTORY: F, Age 69 y/o , SCREENING TECHNIQUE: Procedure Code: BISMWCADBTOM Modality: MG Procedure: SCRN MAMM (CAD)W/ANALIA BILAT COMPARISON: Prior exam(s) were compared FINDINGS: TISSUE DENSITY: The breasts are heterogeneously dense, which may obscure small masses. Bilateral Breast Mammographic Findings: No suspicious masses, calcifications or other abnormalities are identified. BI/SCRN MAMM (CAD)W/ANALIA BILAT IMPRESSION: No mammographic evidence of malignancy in either breast. OVERALL FINAL ASSESSMENT BI-RADS 1: NEGATIVE. RECOMMENDATION: Routine annual follow-up in 1 Year Additional Recommendation none A letter with findings and recommendations will be mailed to the patient. Reading Location: [id number]
== END | disposition home or self-care (01) ==
PROVIDERS: PCP Family Medicine; Referring Provider Family Medicine; Visit Provider Family Medicine
DX: Z12.31 Encounter for screening mammogram for malignant neoplasm of breast (principal); Z78.0 Asymptomatic menopausal state; M81.0 Age-related osteoporosis without current pathological fracture
CPT/HCPCS: 77063; 77067; 77080